=== PATIENT | female | born 1960 | race Caucasian/White ===

== ENCOUNTER 2024-03-26 06:56 | Day surgery (SDC) | payer BC ==
[2024-03-26] MEDS ORDERED: celeBREX 100 MG ONE (07:13)
[2024-03-26] MEDS ORDERED: Lactated Ringers 1,000 ML IV ONE (07:13)
[2024-03-26] MEDS ORDERED: Pepcid 20 MG VIAL IV ONE (07:13)
[2024-03-26] MEDS ORDERED: Decadron 4 MG ONE (07:13)
[2024-03-26] MEDS ORDERED: NEURONTIN ONE (07:13)
[2024-03-26] MEDS ORDERED: Transderm Scop 1.5MG Patch ONE (07:13)
[2024-03-26] MEDS ORDERED: TYLENOL EXTRA STRENGTH 500 MG ONE (07:13)
[2024-03-26] MEDS: TYLENOL EXTRA STRENGTH 500 MG PO ONE (07:15)
[2024-03-26] MEDS: celeBREX 100 MG PO ONE (07:16)
[2024-03-26] MEDS: NEURONTIN PO ONE (07:16)
[2024-03-26] MEDS: Decadron 4 MG PO ONE (07:16)
[2024-03-26] MEDS: Transderm Scop 1.5MG Patch TOP PRN (07:16)
[2024-03-26] MEDS: Pepcid 20 MG VIAL IV ONE (07:17)
[2024-03-26] MEDS: Lactated Ringers 1,000 ML IV SCH (07:17)
[2024-03-26] MEDS ORDERED: CLINDAMYCIN-D5W 900 MG/50 ML*** 900 MG/50 ML BAG IV ONE (07:20)
[2024-03-26] MEDS: CLINDAMYCIN-D5W 900 MG/50 ML*** 900 MG/50 ML BAG IV SCH (07:21)
[2024-03-26 07:32] VITALS: RESP 16
[2024-03-26] MEDS ORDERED: propofoL IV ONE (09:24)
[2024-03-26] MEDS ORDERED: TORAdol 30 mg Injection ONE (09:42)
[2024-03-26] MEDS ORDERED: Reglan 10 MG/2 ML ONE (09:42)
[2024-03-26 11:00] VITALS: TEMP 97.1
[2024-03-26 11:11] VITALS: BP 128/79; PULSE 77; O2SAT 95
--- NOTE | 2024-03-27 13:03 | OP ---
SURGERY DATE/TIME: 03/26/2024 PREOPERATIVE DIAGNOSIS: Postmenopausal bleeding. POSTOPERATIVE DIAGNOSIS: Postmenopausal bleeding. PROCEDURE: Hysteroscopy, dilation and curettage. SURGEON: Salbador Conroy DO DIRECTOR [employer]: Thalia Hubbard. ANESTHESIA: General. ESTIMATED BLOOD LOSS: Minimal. COMPLICATIONS: None. INDICATIONS: The risks, benefits, indications, and alternatives of the procedure were reviewed with the patient prior to the procedure. Patient understood the risk of infection, bleeding, bowel injury, bladder injury, uterine perforation, pelvic infection, thromboembolic disorder associated with the surgery, and desires to have the surgery as a possible means to alleviate her current medical condition. DESCRIPTION OF PROCEDURE AND FINDINGS: At this point, patient was taken to the operating room, given general sedation, placed in the dorsal lithotomy position, prepped and draped in the usual sterile fashion. A weighted speculum was then placed in the patient's vagina, and the anterior lip of the cervix was grasped with a single tooth tenaculum. Endocervical dilators were advanced through the endocervical canal as a means to dilate the cervix, and the 5 mm hysteroscope was then placed through the endocervical region toward the fundal region where visualization appeared to be within normal limits and no gross abnormalities were located or noted in the endometrial cavity. From this point, the hysteroscope was removed and a curette was then placed into the fundus of the uterus and curettage was performed in all quadrants of the uterus, retrieving a mild to moderate amount of tissue. From this point, hemostasis was obtained. At this point, all instruments were removed from the patient's vaginal region. The patient was then taken out of the dorsal lithotomy position, was taken out of anesthesia, was then taken to the recovery room in stable condition. All instruments and laps were accounted for x2.
== END 2024-03-26 11:25 | disposition home or self-care (01) ==
LOC: SDC 06:56
PROVIDERS: ATTEND Obstetrics & Gynecology
DX: N95.0 Postmenopausal bleeding (principal)
CPT/HCPCS: 93005; J1885; J2704; A9270-GY

== ENCOUNTER 2025-01-14 07:39 | Observation (INO) | payer BC ==
[2025-01-14] MEDS: NEURONTIN PO ONE (07:50)
[2025-01-14] MEDS: CLINDAMYCIN-D5W 900 MG/50 ML*** 900 MG/50 ML BAG IV ONE (07:50)
[2025-01-14] MEDS: celeBREX 100 MG PO ONE (07:51)
[2025-01-14] MEDS: Decadron 4 MG PO ONE (07:51)
[2025-01-14] MEDS: TYLENOL EXTRA STRENGTH 500 MG PO ONE (07:51)
[2025-01-14 08:17] LABS: BASOPHIL % 0.4 % (0.1-1.2); Basophil (Absolute #) 0.04 x10^3/uL (0.01-0.08); Eosinophil (Absolute #) 0.11 x10^3/uL (0.04-0.36); Hematocrit 44.5 % (34.1-44.9); Hemoglobin 15.1 g/dL (11.2-15.7); IMMATURE GRAN # 0.08 x10^3u/L (0.001-0.031); IMMATURE GRAN % 0.8 % (0.001-0.429); Lymphocyte (Absolute #) 1.95 x10^3/uL (1.18-3.74); Mean Corpuscular Hemoglobin 29.8 pg (25.6-32.2); Mean Corpuscular Hgb Concent. 33.9 g/dL (32.2-35.5); Monocyte (Absolute #) 0.46 x10^3/uL (0.24-0.86); NUCLEATED RBC # 0.00 x10^3u/L (0.00-0.012); NUCLEATED RBC % 0.0 % (0.00-0.2); Platelet Count 241 x10^3/uL (182-369); Red Blood Count 5.07 x10^6/uL (3.93-5.22); White Blood Count 9.9 x10^3/uL (3.98-10.04)
[2025-01-14 08:21] LABS: HCG URINE TEST NEGATIVE (NEGATIVE)
[2025-01-14 08:38] LABS: Calcium 9.6 mg/dL (8.4-10.2); Carbon Dioxide 22.0 mmol/L (22-30); Creatinine 1 0.67 mg/dL (0.52-1.04); EST GLOMERULAR FILTRATION RATE 98.8 ML/MIN; Glucose 125.0 mg/dL (74-106); Potassium 4.0 mmol/L (3.5-5.1); SGOT/AST 23.0 U/L (14-36); SGPT/ALT 23.0 U/L (0-35); Total Protein 7.7 g/dL (6.3-8.2)
[2025-01-14 08:51] LABS: ABO TYPING A; RH TYPING POSITIVE
[2025-01-14] MEDS: Transderm Scop 1.5MG Patch TOP ONE (09:40)
[2025-01-14] MEDS ORDERED: propofoL IV ONE ×4 (09:43→11:25)
[2025-01-14] MEDS ORDERED: Xylocaine-Mpf 2% 5 Ml Vial ONE (09:43)
[2025-01-14] MEDS ORDERED: BRIDION 200MG/2ML IV ONE (09:43)
[2025-01-14] MEDS ORDERED: ROCURONIUM BROMIDE IV ONE (09:43)
[2025-01-14] MEDS ORDERED: Zofran 4 MG/2 ML VIAL ONE (09:43)
[2025-01-14] MEDS ORDERED: Astramorph-Pf 5 MG/10 ML ONE (09:44)
[2025-01-14] MEDS ORDERED: SUBLIMAZE 100 MCG/2 ML ONE (09:44)
[2025-01-14] MEDS ORDERED: Versed 2 MG/2 ML Injection ONE (09:44)
[2025-01-14] MEDS ORDERED: Epinephrine Preservative Free 1 MG/ML ONE (09:49)
[2025-01-14] MEDS ORDERED: PITRESSIN 20 UNITS ONE (10:13)
[2025-01-14] MEDS ORDERED: Sensorcaine 0.25% 10 ML ONE (10:13)
[2025-01-14] MEDS ORDERED: Naropin 0.5% 30 ML VIAL ONE (11:56)
[2025-01-14 13:10] LABS: Glucose, Urine Negative (Negative); Protein,Urine Dip Negative (Negative); RBC 0-2 /HPF (0-5); WBC 0-2 /HPF (0-5)
[2025-01-14] MEDS ORDERED: TORAdol 30 mg Injection IV PRN (13:40)
[2025-01-14] MEDS ORDERED: BENADRYL 50 MG/ML IV PRN (13:45)
[2025-01-14] MEDS ORDERED: Nubain 10 MG/ML IV PRN (13:45)
[2025-01-14] MEDS ORDERED: Zofran 4 MG/2 ML VIAL IV PRN (13:45)
[2025-01-14] MEDS ORDERED: Sodium Chloride 0.9% 10 ML FLUSH Syringe IJ PRN (13:45)
[2025-01-14] MEDS ORDERED: MORPHINE SULFATE 2 MG INJ IV PRN (13:45)
[2025-01-14] MEDS ORDERED: Narcan 0.4 MG/ML IV PRN (13:45)
[2025-01-14] MEDS ORDERED: DEMEROL 50 MG IV PRN (13:45)
[2025-01-14] MEDS ORDERED: PERCOCET TABLET 5/325MG PO PRN (13:45)
[2025-01-14] MEDS ORDERED: CLARITIN 10 MG PO PRN (13:45)
[2025-01-14] MEDS: Lactated Ringers 1,000 ML IV SCH (13:56)
[2025-01-14] MEDS: Mylicon 80MG PO SCH (13:59)
[2025-01-14] MEDS ORDERED: MEDICATION INTERVENTION MC SCH (14:00)
[2025-01-14] MEDS: Reglan 10 MG/2 ML IV SCH (14:01)
[2025-01-14] MEDS: Aldactone 25 MG PO SCH (15:20)
[2025-01-14] MEDS: Glucophage 500 MG PO SCH ×2 (17:20→18:42)
[2025-01-14] MEDS: CLINDAMYCIN-D5W 900 MG/50 ML*** 900 MG/50 ML BAG IV SCH (17:21)
[2025-01-14] MEDS: Zofran 4 MG/2 ML VIAL IV PRN (17:38)
[2025-01-14 18:08] LABS: Hematocrit 40.8 % (34.1-44.9); Hemoglobin 13.8 g/dL (11.2-15.7); Mean Corpuscular Hemoglobin 29.9 pg (25.6-32.2); Mean Corpuscular Hgb Concent. 33.8 g/dL (32.2-35.5); Platelet Count 219 x10^3/uL (182-369); Red Blood Count 4.62 x10^6/uL (3.93-5.22); White Blood Count 18.6 x10^3/uL (3.98-10.04)
[2025-01-14] MEDS: Docusate Sodium 100 MG PO SCH (21:25)
[2025-01-15 00:02] VITALS: TEMP 97.3
[2025-01-15 05:28] LABS: Hematocrit 37.9 % (34.1-44.9); Hemoglobin 12.6 g/dL (11.2-15.7); Mean Corpuscular Hemoglobin 29.8 pg (25.6-32.2); Mean Corpuscular Hgb Concent. 33.2 g/dL (32.2-35.5); Platelet Count 254 x10^3/uL (182-369); Red Blood Count 4.23 x10^6/uL (3.93-5.22); White Blood Count 17.4 x10^3/uL (3.98-10.04)
[2025-01-15 06:22] LABS: Calcium 9.0 mg/dL (8.4-10.2); Carbon Dioxide 20.0 mmol/L (22-30); Creatinine 1 0.65 mg/dL (0.52-1.04); EST GLOMERULAR FILTRATION RATE 99.5 ML/MIN; Glucose 115.0 mg/dL (74-106); Potassium 4.0 mmol/L (3.5-5.1); SGOT/AST 19.0 U/L (14-36); SGPT/ALT 20.0 U/L (0-35); Total Protein 6.4 g/dL (6.3-8.2)
[2025-01-15 07:24] VITALS: BP 94/51; PULSE 64; RESP 16; O2SAT 95
--- NOTE | 2025-01-15 07:41 | PCM.NOTE ---
Date and Time: 01/15/2540 Subjective Assessment: pod 1 sp lavh pt resting in bed doing well able to ambulate and tolerate diet vss afebrile abd; soft incisions c/d/intact pelvic; packing removed with minimal soilage. hgb; 12.6 a/p sp lavh pod 1 dc home today fu office in 2 wks Objective Exam Wound Assessment: Skin/Wound Assessment Wound/Incision Assessment Start: 01/14/25 16:12 Text: Status: Active Freq: Q6H Protocol: Document 01/15/25 02:00 RM (Rec: 01/15/25 04:35 RM [id number]) Wound/Incision Assessment Anterior Abdomen Wound Assessment Shift Assessment Wound Type Incision Dressing Status Dry & Intact Drainage Amount None General Appearance Well Approximated,Asymptomatic ,Open to air Comment 2 laparoscopic puncture sites closed with dermabond; sites are clean and dry Wound Photo Photo Taken No Objective Data Vital Signs: Vital Signs - 24 hr Temp Pulse Resp BP Pulse Ox 01/15/25 07:22 97.3 F 64 16 94/51 95 01/15/25 06:29 92 L 01/15/25 04:00 97.3 F 65 19 111/58 96 01/15/25 00:00 97.3 F 76 18 108/55 94 L 01/14/25 20:00 97.6 F 79 18 108/58 01/14/25 17:55 95 01/14/25 16:50 72 16 104/56 93 L 01/14/25 14:50 73 16 100/59 93 L 01/14/25 14:34 74 16 92 L 01/14/25 14:20 66 16 93/52 91 L 01/14/25 13:50 67 16 89/51 91 L 01/14/25 13:35 97.6 F 66 15 95/51 91 L 01/14/25 08:05 97.9 F 81 16 148/79 99 01/14/25 07:49 97.9 F 81 16 148/79 99 Pain Assessment - Last Documented Pain Intensity 0 Intake and Output: Intake & Output 01/12/25 01/13/25 01/14/25 01/15/25 10:59 11:59 11:59 11:59 Intake Total 0 9 Balance 0 2138 Weight 80.3 kg 82.9 kg Lab Results: Lab Results-Last 24 Hours 01/14/25 01/14/25 01/14/25 Range/Units 08:05 08:05 08:05 WBC 9.9 (3.98-10.04) x10^3/uL RBC 5.07 (3.93-5.22) x10^6/uL Hgb 15.1 (11.2-15.7) g/dL Hct 44.5 (34.1-44.9) % MCV 87.8 (79.4-94.8) fL MCH 29.8 (25.6-32.2) pg MCHC 33.9 (32.2-35.5) g/dL RDW 12.4 (11.7-14.4) % Plt Count 241 (182-369) x10^3/uL MPV 8.3 L (9.4-12.3) fL Gran % 73.2 H (34.0-71.1) % Immature Gran % (Auto) 0.8 H (0.001-0.429) % Nucleat RBC Rel Count 0.0 (0.00-0.2) % Eos # (Auto) 0.11 (0.04-0.36) x10^3/uL Immature Gran # (Auto) 0.08 H (0.001-0.031) x10^3u/L Absolute Lymphs (auto) 1.95 (1.18-3.74) x10^3/uL Absolute Monos (auto) 0.46 (0.24-0.86) x10^3/uL Absolute Nucleated RBC 0.00 (0.00-0.012) x10^3u/L Lymphocytes % 19.8 (19.3-51.7) % Monocytes % 4.7 (4.7-12.5) % Eosinophils % 1.1 (0.7-5.8) % Basophils % 0.4 (0.1-1.2) % Absolute Granulocytes 7.21 H (1.56-6.13) x10^3/uL Basophils # 0.04 (0.01-0.08) x10^3/uL Sodium 135 (135-145) mmol/L Potassium 4.0 (3.5-5.1) mmol/L Chloride 104 (98-107) mmol/L Carbon Dioxide 22 (22-30) mmol/L Anion Gap 13.8 (5-15) MEQ/L BUN 13 (7-17) mg/dL Creatinine 0.67 (0.52-1.04) mg/dL Estimated GFR 98.8 ML/MIN Glucose 125 H (74-106) mg/dL Calcium 9.6 (8.4-10.2) mg/dL Total Bilirubin 1.10 (0.2-1.3) mg/dL AST 23 (14-36) U/L ALT 23 (0-35) U/L Alkaline Phosphatase 58 (38-126) U/L Serum Total Protein 7.7 (6.3-8.2) g/dL Albumin 4.6 (3.5-5.0) g/dL Urine Color (Yellow) Urine Appearance (Clear) Urine pH (4.6-8.0) Ur Specific [place] (1.005-1.030) Urine Protein (Negative) Urine Glucose (UA) (Negative) mg/dL Urine Ketones (Negative) Urine Blood (Negative) Urine Nitrite (Negative) Urine Bilirubin (Negative) Urine Urobilinogen (0.2) mg/dL Ur Leukocyte Esterase (Negative) U Hyaline Cast (Auto) (0-2) /LPF Urine Microscopic RBC (0-5) /HPF Urine Microscopic WBC (0-5) /HPF Ur Epithelial Cells (None Seen) /HPF Urine Bacteria (None Seen) /HPF Urine HCG, Qual (NEGATIVE) ABO Group A Rh Factor POSITIVE Antibody Screen NEGATIVE (NEGATIVE) 01/14/25 01/14/25 01/14/25 Range/Units 08:21 10:50 18:03 WBC 18.6 H (3.98-10.04) x10^3/uL RBC 4.62 (3.93-5.22) x10^6/uL Hgb 13.8 (11.2-15.7) g/dL Hct 40.8 (34.1-44.9) % MCV 88.3 (79.4-94.8) fL MCH 29.9 (25.6-32.2) pg MCHC 33.8 (32.2-35.5) g/dL RDW 12.3 (11.7-14.4) % Plt Count 219 (182-369) x10^3/uL MPV 8.4 L (9.4-12.3) fL Gran % (34.0-71.1) % Immature Gran % (Auto) (0.001-0.429) % Nucleat RBC Rel Count (0.00-0.2) % Eos # (Auto) (0.04-0.36) x10^3/uL Immature Gran # (Auto) (0.001-0.031) x10^3u/L Absolute Lymphs (auto) (1.18-3.74) x10^3/uL Absolute Monos (auto) (0.24-0.86) x10^3/uL Absolute Nucleated RBC (0.00-0.012) x10^3u/L Lymphocytes % (19.3-51.7) % Monocytes % (4.7-12.5) % Eosinophils % (0.7-5.8) % Basophils % (0.1-1.2) % Absolute Granulocytes (1.56-6.13) x10^3/uL Basophils # (0.01-0.08) x10^3/uL Sodium (135-145) mmol/L Potassium (3.5-5.1) mmol/L Chloride (98-107) mmol/L Carbon Dioxide (22-30) mmol/L Anion Gap (5-15) MEQ/L BUN (7-17) mg/dL Creatinine (0.52-1.04) mg/dL Estimated GFR ML/MIN Glucose (74-106) mg/dL Calcium (8.4-10.2) mg/dL Total Bilirubin (0.2-1.3) mg/dL AST (14-36) U/L ALT (0-35) U/L Alkaline Phosphatase (38-126) U/L Serum Total Protein (6.3-8.2) g/dL Albumin (3.5-5.0) g/dL Urine Color Yellow (Yellow) Urine Appearance Clear (Clear) Urine pH 6.5 (4.6-8.0) Ur Specific [place] 1.010 (1.005-1.030) Urine Protein Negative (Negative) Urine Glucose (UA) Negative (Negative) mg/dL Urine Ketones Negative (Negative) Urine Blood NHT (Negative) Urine Nitrite Negative (Negative) Urine Bilirubin Negative (Negative) Urine Urobilinogen 0.2 (0.2) mg/dL Ur Leukocyte Esterase Negative (Negative) U Hyaline Cast (Auto) NONE SEEN (0-2) /LPF Urine Microscopic RBC 0-2 (0-5) /HPF Urine Microscopic WBC 0-2 (0-5) /HPF Ur Epithelial Cells None Seen (None Seen) /HPF Urine Bacteria None Seen (None Seen) /HPF Urine HCG, Qual NEGATIVE (NEGATIVE) ABO Group Rh Factor Antibody Screen (NEGATIVE) 01/15/25 01/15/25 Range/Units 04:41 04:41 WBC 17.4 H (3.98-10.04) x10^3/uL RBC 4.23 (3.93-5.22) x10^6/uL Hgb 12.6 (11.2-15.7) g/dL Hct 37.9 (34.1-44.9) % MCV 89.6 (79.4-94.8) fL MCH 29.8 (25.6-32.2) pg MCHC 33.2 (32.2-35.5) g/dL RDW 12.3 (11.7-14.4) % Plt Count 254 (182-369) x10^3/uL MPV 8.8 L (9.4-12.3) fL Gran % (34.0-71.1) % Immature Gran % (Auto) (0.001-0.429) % Nucleat RBC Rel Count (0.00-0.2) % Eos # (Auto) (0.04-0.36) x10^3/uL Immature Gran # (Auto) (0.001-0.031) x10^3u/L Absolute Lymphs (auto) (1.18-3.74) x10^3/uL Absolute Monos (auto) (0.24-0.86) x10^3/uL Absolute Nucleated RBC (0.00-0.012) x10^3u/L Lymphocytes % (19.3-51.7) % Monocytes % (4.7-12.5) % Eosinophils % (0.7-5.8) % Basophils % (0.1-1.2) % Absolute Granulocytes (1.56-6.13) x10^3/uL Basophils # (0.01-0.08) x10^3/uL Sodium 134 L (135-145) mmol/L Potassium 4.0 (3.5-5.1) mmol/L Chloride 104 (98-107) mmol/L Carbon Dioxide 20 L (22-30) mmol/L Anion Gap 13.5 (5-15) MEQ/L BUN 11 (7-17) mg/dL Creatinine 0.65 (0.52-1.04) mg/dL Estimated GFR 99.5 ML/MIN Glucose 115 H (74-106) mg/dL Calcium 9.0 (8.4-10.2) mg/dL Total Bilirubin 0.90 (0.2-1.3) mg/dL AST 19 (14-36) U/L ALT 20 (0-35) U/L Alkaline Phosphatase 46 (38-126) U/L Serum Total Protein 6.4 (6.3-8.2) g/dL Albumin 3.7 (3.5-5.0) g/dL Urine Color (Yellow) Urine Appearance (Clear) Urine pH (4.6-8.0) Ur Specific [place] (1.005-1.030) Urine Protein (Negative) Urine Glucose (UA) (Negative) mg/dL Urine Ketones (Negative) Urine Blood (Negative) Urine Nitrite (Negative) Urine Bilirubin (Negative) Urine Urobilinogen (0.2) mg/dL Ur Leukocyte Esterase (Negative) U Hyaline Cast (Auto) (0-2) /LPF Urine Microscopic RBC (0-5) /HPF Urine Microscopic WBC (0-5) /HPF Ur Epithelial Cells (None Seen) /HPF Urine Bacteria (None Seen) /HPF Urine HCG, Qual (NEGATIVE) ABO Group Rh Factor Antibody Screen (NEGATIVE) Medications: Medications Generic Name Dose Route Start Last Admin Trade Name Freq PRN Reason Stop Dose Admin Diphenhydramine HCl 12.5 - 25 mg 01/14/25 13:45 Diphenhydramine Hcl 50 Mg/Ml Vial IV 01/15/25 13:44 Q6H PRN PRN FOR INTOLERABLE ITCHING Docusate Sodium 100 mg 01/14/25 22:00 01/14/25 21:25 Docusate Sodium 100 Mg Capsule PO 02/13/25 21:59 100 mg BID KISHORE Administration Enoxaparin Sodium 40 mg 01/15/25 10:00 Enoxaparin Sodium 40 Mg/0.4 Ml Syringe SQ 02/14/25 09:59 DAILY KISHORE Lactated Ringer's 1,000 mls @ 125 mls/hr 01/14/25 14:00 01/14/25 22:19 Lactated Ringers IV 02/13/25 13:59 125 mls/hr .Q8H KISHORE Administration Ketorolac Tromethamine 30 mg 01/14/25 13:40 Ketorolac Tromethamine 30 Mg/Ml Inj IV 01/19/25 13:39 Q6HPRN PRN BREAKTHROUGH PAIN Loratadine 10 mg 01/14/25 13:45 Loratadine 10 Mg Tablet PO 01/15/25 13:44 QDP PRN ITCHING Meperidine HCl 12.5 mg 01/14/25 13:45 Meperidine Hcl 50 Mg/Ml Carp IV 01/15/25 13:44 PRN PRN X 1 PRN SHAKING/TREMORS Metformin HCl 500 mg 01/14/25 18:00 01/14/25 17:20 Metformin Hcl 500 Mg Tablet PO 02/13/25 17:59 500 mg 1800 KISHORE Administration Metoclopramide HCl 10 mg 01/14/25 14:00 01/15/25 05:18 Metoclopramide Hcl 10 Mg/2 Ml Vial IV 02/13/25 13:59 10 mg Q8HT KISHORE Administration Miscellaneous Information 1 each 01/14/25 14:00 Medication Intervention 1 Each Each 02/13/25 13:59 .RN TO CHECK KISHORE Morphine Sulfate 2 mg 01/14/25 13:45 Morphine Sulfate 2 Mg/Ml Inj IV 01/15/25 13:44 .Q30MIN PRN PRN BREAKTHROUGH ,SEVERE PAIN Nalbuphine HCl 5 mg 01/14/25 13:45 Nalbuphine Hcl 10 Mg/Ml Ampul IV 01/15/25 13:44 Q6H PRN PRN FOR INTOLERABLE ITCHING Naloxone HCl 0.1 mg 01/14/25 13:45 Naloxone Hcl 0.4 Mg/Ml Ml IV 01/15/25 13:44 PRN PRN Non-Formulary Medication 1 each 01/15/25 10:00 Hold Narcotic Analgesics/Sedatives 1 Each Each 01/15/25 10:01 DAILY [facility] Ondansetron HCl 4 mg 01/14/25 13:38 01/14/25 17:38 Ondansetron Hcl 4 Mg/2 Ml Vial IV 02/13/25 13:37 4 mg Q6HPRN PRN Administration NAUSEA Oxycodone/Acetaminophen 1 - 2 tab 01/14/25 13:45 Oxycodone Hcl/Apap 5 Mg/325 Mg Tablet PO 01/15/25 13:44 Q4H PRN PRN MODERATE PAIN Simethicone 80 mg 01/14/25 14:00 01/15/25 05:18 Simethicone 80 Mg Tab.Chew PO 02/13/25 13:59 80 mg Q8HT KISHORE Administration Sodium Chloride 10 ml 01/14/25 13:45 Normal Saline 10 Ml Flush IJ 01/15/25 13:44 PRN PRN MAINTAIN IV/SALINE LOCK Spironolactone 100 mg 01/14/25 15:00 01/14/25 15:20 Spironolactone 25 Mg Tablet PO 02/13/25 14:59 Not Given DAILY KISHORE Discontinued Medications Generic Name Dose Route Start Last Admin Trade Name Freq PRN Reason Stop Dose Admin Acetaminophen 1,000 mg 01/14/25 07:49 01/14/25 07:51 Acetaminophen 500 Mg Tablet PO 01/14/25 07:50 1,000 mg 2HRPRIOR ONE Administration Bupivacaine HCl Confirm 01/14/25 10:13 Bupivacaine Hcl 2.5 Mg/Ml 10 Ml Administered 01/14/25 10:14 Dose 10 ml .ROUTE .STK-MED ONE Celecoxib 200 mg 01/14/25 07:49 01/14/25 07:51 Celecoxib 100 Mg Capsule PO 01/14/25 07:50 200 mg 2HRPRIOR ONE Administration Dexamethasone 8 mg 01/14/25 07:49 01/14/25 07:51 Dexamethasone 4 Mg Tablet PO 01/14/25 07:50 8 mg 2HRPRIOR ONE Administration Epinephrine HCl Confirm 01/14/25 09:49 Epinephrine 1 Mg/1 Ml Pf Amp 1 Mg/Ml Ml Administered 01/14/25 09:50 Dose 1 mg .ROUTE .STK-MED ONE Fentanyl Citrate Confirm 01/14/25 09:44 Fentanyl Citrate 100 Mcg/2 Ml* Vial Administered 01/14/25 09:45 Dose 100 mcg .ROUTE .STK-MED ONE Gabapentin 600 mg 01/14/25 07:49 01/14/25 07:50 Gabapentin 300 Mg Capsule PO 01/14/25 07:50 600 mg 2HRPRIOR ONE Administration Clindamycin HCl/Dextrose 900 mg in 50 mls @ 100 mls/hr 01/14/25 07:47 01/14/25 07:50 Clindamycin-D5w 900 Mg/50 Ml IV 01/14/25 08:16 100 mls/hr ONCALLTOOR ONE Administration Sodium Chloride 1,000 mls @ 0 mls/hr 01/14/25 08:00 01/14/25 07:51 Sodium Chloride 0.9% 1000 Ml IV 02/13/25 07:59 50 mls/hr .Q0M KISHORE Administration KVO Sodium Chloride Confirm 01/14/25 10:30 Sodium Chloride 0.9% 1000 Ml Administered 01/14/25 10:31 Dose 1,000 mls @ ud .ROUTE .STK-MED ONE Clindamycin HCl/Dextrose 900 mg in 50 mls @ 100 mls/hr 01/14/25 16:00 01/14/25 23:53 Clindamycin-D5w 900 Mg/50 Ml IV 01/15/25 00:29 100 mls/hr Q8H KISHORE Administration Sodium Chloride 500 mls @ 500 mls/hr 01/14/25 15:17 01/14/25 15:20 Sodium Chloride 0.9% 500 Ml IV 01/14/25 16:16 500 mls/hr .Q1H ONE Administration Lidocaine HCl Confirm 01/14/25 09:43 Lidocaine - Mpf 2% 5 Ml Vial Administered 01/14/25 09:44 Dose 5 ml .ROUTE .STK-MED ONE Metformin HCl 500 mg 01/14/25 15:00 01/14/25 18:42 Metformin Hcl 500 Mg Tablet PO 02/13/25 14:59 Not Given DAILY KISHORE Midazolam HCl Confirm 01/14/25 09:44 Midazolam Hcl 2 Mg/2 Ml Vial Administered 01/14/25 09:45 Dose 2 mg .ROUTE .STK-MED ONE Morphine Sulfate Confirm 01/14/25 09:44 Morphine Sulfate 5 Mg/10 Ml Pf Ampul Administered 01/14/25 09:45 Dose 5 mg .ROUTE .STK-MED ONE Ondansetron HCl Confirm 01/14/25 09:43 Ondansetron Hcl 4 Mg/2 Ml Vial Administered 01/14/25 09:44 Dose 4 mg .ROUTE .STK-MED ONE Ondansetron HCl 4 mg 01/14/25 13:45 Ondansetron Hcl 4 Mg/2 Ml Vial IV 01/15/25 13:44 PRN PRN NAUSEA Propofol Confirm 01/14/25 09:43 Propofol 200 Mg/20 Ml Vial Administered 01/14/25 09:44 Dose 200 mg IV .STK-MED ONE Propofol Confirm 01/14/25 10:11 Propofol 200 Mg/20 Ml Vial Administered 01/14/25 10:12 Dose 400 mg IV .STK-MED ONE Propofol Confirm 01/14/25 11:14 Propofol 200 Mg/20 Ml Vial Administered 01/14/25 11:15 Dose 200 mg IV .STK-MED ONE Propofol Confirm 01/14/25 11:25 Propofol 200 Mg/20 Ml Vial Administered 01/14/25 11:26 Dose 200 mg IV .STK-MED ONE Rocuronium [place] Confirm 01/14/25 09:43 Rocuronium [place] 50 Mg/5 Ml Vial Administered 01/14/25 09:44 Dose 50 mg IV .STK-MED ONE Ropivacaine Confirm 01/14/25 11:56 Ropivacaine Hcl 5 Mg/Ml 30ml Vial Administered 01/14/25 11:57 Dose 450 mg .ROUTE .STK-MED ONE Scopolamine HBr 1.5 mg 01/14/25 09:40 01/14/25 09:40 Scopolamine 1.5 Mg Patch TOP 01/14/25 09:41 1.5 mg STAT ONE Administration Sugammadex Sodium Confirm 01/14/25 09:43 Sugammadex Sodium 200 Mg/2 Ml Vial Administered 01/14/25 09:44 Dose 200 mg IV .STK-MED ONE Vasopressin Confirm 01/14/25 10:13 Vasopressin 20 Unit/Ml Ml Administered 01/14/25 10:14 Dose 20 unit .ROUTE .STK-MED ONE Assessment/Plan (1) Postmenopausal bleeding Current Visit: Yes Status: Acute Code(s): N95.0 - POSTMENOPAUSAL BLEEDING (2) S/P laparoscopic assisted vaginal hysterectomy (LAVH) Current Visit: Yes Status: Acute Code(s): Z90.710 - ACQUIRED ABSENCE OF BOTH CERVIX AND UTERUS
--- NOTE | 2025-01-15 07:48 | PCM.DS ---
Discharge Summary Date of Admission: 01/14/25 07:39 Admitting Physician: ADARSH HUGHES DO Primary Care Provider: ADI REEVES Allergies Allergies cefdinir Allergy (Verified 01/14/25 07:46) [facility] Summary - Hospital Course Hospital Course: pt admitted on jan 14 after having undergone laparascopic assisted vaginal hysterectomy with partial right salpingectomy secondary to recurrent postmenopausal bleeding. pt underwent procedure without complication and labs reviewed and noted having stable hgb at 12.6. pt incisions c/d/intact and pt able to ambulate and tolerate diet. pt at this time stable for discharge and was advised to fu in office in 2 wks. pt given percocet for pain management and was advised to call me for any issues that may arise upon discharge. all questions answered to her satisfaction. - Vitals & Intake/Output Vital Signs: Vital Signs Temperature 97.3 F 01/15/25 07:22 Pulse Rate 64 01/15/25 07:22 Respiratory Rate 16 01/15/25 07:22 Blood Pressure 94/51 01/15/25 07:22 O2 Sat by Pulse Oximetry 95 01/15/25 07:22 Intake & Output: Intake & Output 01/12/25 01/13/25 01/14/25 01/15/25 10:59 11:59 11:59 11:59 Intake Total 0 2139 Balance 0 2139 Weight 80.3 kg 82.9 kg - Lab Result Diagrams: 01/15/25 04:41 01/15/25 04:41 Lab Results-Last 24 Hrs: Lab Results-Last 24 Hours 01/14/25 01/14/25 01/14/25 Range/Units 08:05 08:05 08:05 WBC 9.9 (3.98-10.04) x10^3/uL RBC 5.07 (3.93-5.22) x10^6/uL Hgb 15.1 (11.2-15.7) g/dL Hct 44.5 (34.1-44.9) % MCV 87.8 (79.4-94.8) fL MCH 29.8 (25.6-32.2) pg MCHC 33.9 (32.2-35.5) g/dL RDW 12.4 (11.7-14.4) % Plt Count 241 (182-369) x10^3/uL MPV 8.3 L (9.4-12.3) fL Gran % 73.2 H (34.0-71.1) % Immature Gran % (Auto) 0.8 H (0.001-0.429) % Nucleat RBC Rel Count 0.0 (0.00-0.2) % Eos # (Auto) 0.11 (0.04-0.36) x10^3/uL Immature Gran # (Auto) 0.08 H (0.001-0.031) x10^3u/L Absolute Lymphs (auto) 1.95 (1.18-3.74) x10^3/uL Absolute Monos (auto) 0.46 (0.24-0.86) x10^3/uL Absolute Nucleated RBC 0.00 (0.00-0.012) x10^3u/L Lymphocytes % 19.8 (19.3-51.7) % Monocytes % 4.7 (4.7-12.5) % Eosinophils % 1.1 (0.7-5.8) % Basophils % 0.4 (0.1-1.2) % Absolute Granulocytes 7.21 H (1.56-6.13) x10^3/uL Basophils # 0.04 (0.01-0.08) x10^3/uL Sodium 135 (135-145) mmol/L Potassium 4.0 (3.5-5.1) mmol/L Chloride 104 (98-107) mmol/L Carbon Dioxide 22 (22-30) mmol/L Anion Gap 13.8 (5-15) MEQ/L BUN 13 (7-17) mg/dL Creatinine 0.67 (0.52-1.04) mg/dL Estimated GFR 98.8 ML/MIN Glucose 125 H (74-106) mg/dL Calcium 9.6 (8.4-10.2) mg/dL Total Bilirubin 1.10 (0.2-1.3) mg/dL AST 23 (14-36) U/L ALT 23 (0-35) U/L Alkaline Phosphatase 58 (38-126) U/L Serum Total Protein 7.7 (6.3-8.2) g/dL Albumin 4.6 (3.5-5.0) g/dL Urine Color (Yellow) Urine Appearance (Clear) Urine pH (4.6-8.0) Ur Specific [place] (1.005-1.030) Urine Protein (Negative) Urine Glucose (UA) (Negative) mg/dL Urine Ketones (Negative) Urine Blood (Negative) Urine Nitrite (Negative) Urine Bilirubin (Negative) Urine Urobilinogen (0.2) mg/dL Ur Leukocyte Esterase (Negative) U Hyaline Cast (Auto) (0-2) /LPF Urine Microscopic RBC (0-5) /HPF Urine Microscopic WBC (0-5) /HPF Ur Epithelial Cells (None Seen) /HPF Urine Bacteria (None Seen) /HPF Urine HCG, Qual (NEGATIVE) ABO Group A Rh Factor POSITIVE Antibody Screen NEGATIVE (NEGATIVE) 01/14/25 01/14/25 01/14/25 Range/Units 08:21 10:50 18:03 WBC 18.6 H (3.98-10.04) x10^3/uL RBC 4.62 (3.93-5.22) x10^6/uL Hgb 13.8 (11.2-15.7) g/dL Hct 40.8 (34.1-44.9) % MCV 88.3 (79.4-94.8) fL MCH 29.9 (25.6-32.2) pg MCHC 33.8 (32.2-35.5) g/dL RDW 12.3 (11.7-14.4) % Plt Count 219 (182-369) x10^3/uL MPV 8.4 L (9.4-12.3) fL Gran % (34.0-71.1) % Immature Gran % (Auto) (0.001-0.429) % Nucleat RBC Rel Count (0.00-0.2) % Eos # (Auto) (0.04-0.36) x10^3/uL Immature Gran # (Auto) (0.001-0.031) x10^3u/L Absolute Lymphs (auto) (1.18-3.74) x10^3/uL Absolute Monos (auto) (0.24-0.86) x10^3/uL Absolute Nucleated RBC (0.00-0.012) x10^3u/L Lymphocytes % (19.3-51.7) % Monocytes % (4.7-12.5) % Eosinophils % (0.7-5.8) % Basophils % (0.1-1.2) % Absolute Granulocytes (1.56-6.13) x10^3/uL Basophils # (0.01-0.08) x10^3/uL Sodium (135-145) mmol/L Potassium (3.5-5.1) mmol/L Chloride (98-107) mmol/L Carbon Dioxide (22-30) mmol/L Anion Gap (5-15) MEQ/L BUN (7-17) mg/dL Creatinine (0.52-1.04) mg/dL Estimated GFR ML/MIN Glucose (74-106) mg/dL Calcium (8.4-10.2) mg/dL Total Bilirubin (0.2-1.3) mg/dL AST (14-36) U/L ALT (0-35) U/L Alkaline Phosphatase (38-126) U/L Serum Total Protein (6.3-8.2) g/dL Albumin (3.5-5.0) g/dL Urine Color Yellow (Yellow) Urine Appearance Clear (Clear) Urine pH 6.5 (4.6-8.0) Ur Specific [place] 1.010 (1.005-1.030) Urine Protein Negative (Negative) Urine Glucose (UA) Negative (Negative) mg/dL Urine Ketones Negative (Negative) Urine Blood NHT (Negative) Urine Nitrite Negative (Negative) Urine Bilirubin Negative (Negative) Urine Urobilinogen 0.2 (0.2) mg/dL Ur Leukocyte Esterase Negative (Negative) U Hyaline Cast (Auto) NONE SEEN (0-2) /LPF Urine Microscopic RBC 0-2 (0-5) /HPF Urine Microscopic WBC 0-2 (0-5) /HPF Ur Epithelial Cells None Seen (None Seen) /HPF Urine Bacteria None Seen (None Seen) /HPF Urine HCG, Qual NEGATIVE (NEGATIVE) ABO Group Rh Factor Antibody Screen (NEGATIVE) 01/15/25 01/15/25 Range/Units 04:41 04:41 WBC 17.4 H (3.98-10.04) x10^3/uL RBC 4.23 (3.93-5.22) x10^6/uL Hgb 12.6 (11.2-15.7) g/dL Hct 37.9 (34.1-44.9) % MCV 89.6 (79.4-94.8) fL MCH 29.8 (25.6-32.2) pg MCHC 33.2 (32.2-35.5) g/dL RDW 12.3 (11.7-14.4) % Plt Count 254 (182-369) x10^3/uL MPV 8.8 L (9.4-12.3) fL Gran % (34.0-71.1) % Immature Gran % (Auto) (0.001-0.429) % Nucleat RBC Rel Count (0.00-0.2) % Eos # (Auto) (0.04-0.36) x10^3/uL Immature Gran # (Auto) (0.001-0.031) x10^3u/L Absolute Lymphs (auto) (1.18-3.74) x10^3/uL Absolute Monos (auto) (0.24-0.86) x10^3/uL Absolute Nucleated RBC (0.00-0.012) x10^3u/L Lymphocytes % (19.3-51.7) % Monocytes % (4.7-12.5) % Eosinophils % (0.7-5.8) % Basophils % (0.1-1.2) % Absolute Granulocytes (1.56-6.13) x10^3/uL Basophils # (0.01-0.08) x10^3/uL Sodium 134 L (135-145) mmol/L Potassium 4.0 (3.5-5.1) mmol/L Chloride 104 (98-107) mmol/L Carbon Dioxide 20 L (22-30) mmol/L Anion Gap 13.5 (5-15) MEQ/L BUN 11 (7-17) mg/dL Creatinine 0.65 (0.52-1.04) mg/dL Estimated GFR 99.5 ML/MIN Glucose 115 H (74-106) mg/dL Calcium 9.0 (8.4-10.2) mg/dL Total Bilirubin 0.90 (0.2-1.3) mg/dL AST 19 (14-36) U/L ALT 20 (0-35) U/L Alkaline Phosphatase 46 (38-126) U/L Serum Total Protein 6.4 (6.3-8.2) g/dL Albumin 3.7 (3.5-5.0) g/dL Urine Color (Yellow) Urine Appearance (Clear) Urine pH (4.6-8.0) Ur Specific [place] (1.005-1.030) Urine Protein (Negative) Urine Glucose (UA) (Negative) mg/dL Urine Ketones (Negative) Urine Blood (Negative) Urine Nitrite (Negative) Urine Bilirubin (Negative) Urine Urobilinogen (0.2) mg/dL Ur Leukocyte Esterase (Negative) U Hyaline Cast (Auto) (0-2) /LPF Urine Microscopic RBC (0-5) /HPF Urine Microscopic WBC (0-5) /HPF Ur Epithelial Cells (None Seen) /HPF Urine Bacteria (None Seen) /HPF Urine HCG, Qual (NEGATIVE) ABO Group Rh Factor Antibody Screen (NEGATIVE) - Procedures and Test Procedures and Tests throughout Hospitalization: Therapy Orders & Screens 01/14/25 13:33 Incentive Spirometry UD Comment: Diagnosis: n95.0 01/14/25 14:30 Respiratory Therapy Assessment DAILY Comment: Diagnosis: n95.0 01/14/25 14:31 Oxygen Nasal Cannula 2 lpm Comment: Diagnosis: n95.0 Discharge Exam Wound Assessment: Skin/Wound Assessment Wound/Incision Assessment Start: 01/14/25 16:12 Text: Status: Active Freq: Q6H Protocol: Document 01/15/25 02:00 RM (Rec: 01/15/25 04:35 RM [id number]) Wound/Incision Assessment Anterior Abdomen Wound Assessment Shift Assessment Wound Type Incision Dressing Status Dry & Intact Drainage Amount None General Appearance Well Approximated,Asymptomatic ,Open to air Comment 2 laparoscopic puncture sites closed with dermabond; sites are clean and dry Wound Photo Photo Taken No Final Diagnosis/Problem List - Final Discharge Diagnosis/Problem (1) Postmenopausal bleeding Current Visit: Yes Status: Acute Code(s): N95.0 - POSTMENOPAUSAL BLEEDING (2) S/P laparoscopic assisted vaginal hysterectomy ([facility]) Current Visit: Yes Status: Acute Code(s): Z90.710 - ACQUIRED ABSENCE OF BOTH CERVIX AND UTERUS - Discharge Disposition: Home, Self-Care Condition: Stable Prescriptions: New Oxycodone HCl/Acetaminophen [Percocet 5-325 mg Tablet] 1 each PO Q6H PRN PRN #20 tablet MDD 4 PRN Reason: Moderate To Severe Pain No Action Spironolactone 100 mg PO DAILY Biotin 10,000 mcg PO DAILY Metformin HCl 500 mg [Glucophage 500 MG] 500 mg PO EVENING MEAL Follow up with: ADI REEVES NP [Primary Care Provider, UNKNOWN] ADARSH HUGHES DO [ACTIVE STAFF, OBSTETRICS-GYNECOLOGY] - 2 weeks Referral Note: no heavy lifting no driving for a week no intercourse for 6 wks should call me for any issues that may arise upon discharge such as fever or abdominal pelvic pain or vaginal bleeding
[2025-01-15] MEDS ORDERED: BIOTIN 10000 MCG PO SCH (10:00)
[2025-01-15] MEDS ORDERED: HOLD NARCOTIC ANALGESICS AND SEDATIVES X24 HR MC SCH (10:00)
[2025-01-15] MEDS ORDERED: ENOXAPARIN SODIUM SQ SCH (10:00)
[2025-01-15] MEDS ORDERED: NON-FORMULARY ITEM (Spironolactone [Spironolactone] 100 MG Tablet) PO SCH (10:00)
--- NOTE | 2025-01-16 11:00 | OP ---
SURGERY DATE/TIME: 01/14/2025 [id number] PREOPERATIVE DIAGNOSIS: Recurrent postmenopausal bleeding. POSTOPERATIVE DIAGNOSIS: Recurrent postmenopausal bleeding. PROCEDURES: Laparoscopic-assisted vaginal hysterectomy, right partial salpingectomy, and history of previous tubal sterilization. SURGEON: Salbador Conroy D.O. BEHAVIORAL HEALTH CARE MANAGER: Thalia Hubbard ANESTHESIA: General. ESTIMATED BLOOD LOSS: 50 mL. COMPLICATIONS: None. FINDINGS: The risks, benefits, indications, and alternatives of the procedure were reviewed with the patient prior to the procedure. The patient understood the risks of infection, bleeding, bowel injury, bladder injury, ureteral injury, pelvic infection, thromboembolic disorder associated with the surgery and desired to have this surgery as a possible means to alleviate her current medical condition. DESCRIPTION OF PROCEDURE AND FINDINGS: At this point, patient was taken to the operating room and given general sedation, placed in a dorsal lithotomy position, prepped and draped in the usual sterile fashion. Attention was then turned to patient's abdomen where a 5 mm skin incision was made approximately 1 cm above the umbilicus where a 5 mm trocar and sleeve were advanced under direct visualization where pneumoperitoneum was obtained with 4 L of CO2 gas. An additional incision was made in the left middle quadrant region where a 5 mm incision was made where a 5 mm trocar and sleeve were advanced under direct visualization. An additional incision was made in the right middle quadrant region where a 5 mm incision was made. The 5 mm trocar and sleeve were advanced under direct visualization as well. A survey of the patient's pelvis revealed no gross abnormalities where the uterus appeared to be within normal size. At this point, the uterus is elevated with a grasper by the educational assistant and the left utero-ovarian ligament was clamped, coagulated and cut with a LigaSure, taking down through the round ligament toward the uterine vasculature where it was skeletonized no its side and a bladder flap developed on its side. The uterine vasculature was clamped, coagulated and cut on 2 contiguous regions and hemostasis was obtained. The same procedure was performed on the right side where the educational assistant elevated the uterus and tilted to her side and the right utero-ovarian ligament was clamped, coagulated, cut, taken down through the round ligament toward the uterine vasculature were it too was skeletonized and the uterine vasculature was clamped, coagulated, and cut in 2 contiguous regions and hemostasis was obtained while a bladder flap was developed on its side. From this point, again, hemostasis was obtained. There was no fallopian tube that was noted on the left side; however, there appeared to be a small piece of right fallopian tube on the right where it was elevated and the LigaSure was used over the right mesosalpinx where it was clamped, coagulated, and cut and removed the partial piece of fallopian tube on the right side. Attention was then turned to the patient's pelvic region where a weighted speculum was then placed into the vagina and the cervix was grasped with the Amarilys clamps. The cervix was then injected circumferentially with diluted vasopressin and approximately 10 mL was used. The cervix was then circumferentially incised with a scalpel and the bladder dissected off the pubovesicocervical fascia anteriorly with a sponge stick and the Metzenbaum scissors. The anterior cul-de-sac was then entered sharply and the same procedure was performed posteriorly and the posterior cul-de-sac was entered sharply without difficulty. At this point, a Griselda clamp was placed over the uterosacral ligaments on either side. These were then transected and suture ligated with 0 Vicryl suture. Hemostasis was assured. The cardinal ligaments were then clamped on both sides, transected and suture ligated in a similar fashion. The uterine arteries and the broad ligament were clamped with a LigaSure, coagulated and cut and hemostasis was obtained. From this point, the uterus was then delivered. The peritoneum and vaginal cuff was closed with a pursestring suture of 0 Vicryl suture. The vaginal cuff angles were closed with [id number] stitches of 0 Vicryl on both sides and transfixed to the ipsilateral, cardinal and uterosacral ligaments. The remainder of the vaginal cuff was closed with [id number] sutures of 0 Vicryl in an interrupted fashion. From this point, vaginal packing was in place and then a second look was made after visualizing the pelvic region. Hemostasis was obtained at this point. After a second look, all instruments were removed from the patient's abdominal region. The gas was released and the incisions were closed with 4-0 Monocryl suture. Patient was then taken out of the dorsal lithotomy position, was taken out of anesthesia, and was then taken to the recovery room in stable condition. All instruments and laps were accounted for x2.
== END 2025-01-15 08:59 | disposition home or self-care (01) ==
LOC: MED SURG 07:39 → EDSTATUS 14:33
PROVIDERS: ADMIT Obstetrics & Gynecology; ATTEND Obstetrics & Gynecology
DX: N95.0 Postmenopausal bleeding (principal)
CPT/HCPCS: 36415; 58262; 80053; 81001; 81025; 85025; 85027; 86850; 86900; 86901; 87086; 94760; G0378